=== PATIENT | female | born 1995 | race Caucasian/White ===

== ENCOUNTER 2021-10-26 17:46 | Emergency (ER) | payer OTHER ==
[~2021-10-26] VITALS: Ht 167.6 cm; Wt 104.5 kg
[2021-10-26 17:55] VITALS: BP 134/60
[2021-10-26] MEDS ORDERED: IBUPROFEN 600 MG TABLET PO ONE (20:15)
== END 2021-10-26 20:22 | disposition home or self-care (01) ==
LOC: EMS 17:56
DX: S63.502A Unspecified sprain of left wrist, initial encounter (principal); W01.0XXA Fall on same level from slipping, tripping and stumbling without subsequent striking against object, initial encounter; Y93.89 Activity, other specified; Y92.89 Other specified places as the place of occurrence of the external cause; Y99.8 Other external cause status
CPT/HCPCS: 99284; 73110-TC; 73130-TC; Z7502; Z7610